=== PATIENT | male | born 1975 | race Caucasian/White ===

== ENCOUNTER → 2016-11-04 | Outpatient (CLI) | payer OTHER ==
[~2016-11-04] MED LIST: CELEXA20 MG PO; CLARITIN10 MG PO; LISINOPRIL40 MG PO; MEDROL DOSEPAK4 MG PO; PREDNISONE10 MG PO; PRILOSEC10 MG/Pack PO; TOBREX OPHTH S2.5 ML OPH; VICO10300 PO; XANAX1 MG PO
== END | disposition home or self-care (01) ==
LOC: RESCLI 01:36
DX: I10 Essential (primary) hypertension (principal); N50.82 Scrotal pain; R05 Cough; J30.2 Other seasonal allergic rhinitis; F10.10 Alcohol abuse, uncomplicated; R00.0 Tachycardia, unspecified; G25.81 Restless legs syndrome; K76.0 Fatty (change of) liver, not elsewhere classified; R30.0 Dysuria; R51 Headache; Z71.41 Alcohol abuse counseling and surveillance of alcoholic; Z72.0 Tobacco use; Z71.6 Tobacco abuse counseling

== ENCOUNTER → 2016-11-05 | Outpatient (CLI) | payer OTHER | END | disposition home or self-care (01) | LOC: LAB 02:13 | DX: Z00.01 Encounter for general adult medical examination with abnormal findings (principal); R30.0 Dysuria ==

== ENCOUNTER → 2016-11-09 | Outpatient (CLI) | payer OTHER | END | disposition home or self-care (01) | LOC: US 03:02 | DX: N50.82 Scrotal pain (principal) ==

== ENCOUNTER → 2016-11-16 | Outpatient (CLI) | payer OTHER | END | disposition home or self-care (01) | LOC: RESCLI 03:20 | DX: I10 Essential (primary) hypertension (principal); N50.82 Scrotal pain; F10.10 Alcohol abuse, uncomplicated; G25.81 Restless legs syndrome; R51 Headache; K76.0 Fatty (change of) liver, not elsewhere classified; H93.13 Tinnitus, bilateral; Z91.19 Patient's noncompliance with other medical treatment and regimen; Z71.41 Alcohol abuse counseling and surveillance of alcoholic; Z72.0 Tobacco use; Z71.6 Tobacco abuse counseling ==

== ENCOUNTER → 2016-12-09 | Outpatient (CLI) | payer OTHER ==
[2016-12-09 13:14] LABS: BASO # 0.1 10*3/uL (0.0-0.1); BASO % 0.9 % (0.0-1.0); EOS # 0.1 10*3/uL (0.0-0.4); EOS % 1.7 % (1.0-4.0); HEMATOCRIT 43.8 % (42.0-52.0); HEMOGLOBIN 15.1 g/dl (14.0-18.0); LYMPH # 1.2 10*3/uL (1.3-4.4); LYMPH % 20.9 % (27.0-41.0); MEAN CELL VOLUME 103.1 fl (80.0-94.0); MEAN CORPUSCULAR HGB 35.5 pg (27.0-31.0); MEAN CORPUSCULAR HGB CONC 34.5 g/dl (33.0-37.0); MEAN PLATELET VOLUME 10.3 fl (9.6-12.3); MONO # 0.6 10*3/uL (0.1-1.0); NEUT # 3.8 10*3/uL (2.3-7.9); NEUT % 65.2 % (47.0-73.0); PLATELET COUNT AUTOMATED 114 10*3/uL (130-400); RED BLOOD COUNT 4.25 10*6/uL (4.50-5.90); RED CELL DISTRI WIDTH 12.4 % (0-14.5); WHITE BLOOD COUNT 5.8 10*3/uL (4.8-10.8)
[2016-12-09 13:43] LABS: ALBUMIN 4.2 gm/dl (3.1-4.5); ALKALINE PHOSPHATASE 71 U/L (45-117); BUN 4 mg/dl (7-24); CHLORIDE 99 mmol/L (98-107); CHOLESTEROL 211 mg/dL (<200); CREATININE 0.67 mg/dL (0.70-1.30); HDL CHOLESTEROL 130 mg/dl (40-60); LDL CHOLESTEROL 71 mg/dL (9-159); POTASSIUM 4.2 mmol/L (3.5-5.1); SGOT/AST 99 IU/L (3-35); SGPT/ALT 132 U/L (12-78); SODIUM 136 mmol/L (136-145); TOTAL PROTEIN 8.3 gm/dL (6.4-8.2); TRIGLYCERIDES 50 mg/dl (<150); VLDL CHOLESTEROL 10 mg/dL (6-40)
== END | disposition home or self-care (01) ==
LOC: LAB 12:32
PROVIDERS: Internal Medicine
DX: Z00.01 Encounter for general adult medical examination with abnormal findings (principal); R79.89 Other specified abnormal findings of blood chemistry

== ENCOUNTER → 2016-12-14 | Outpatient (CLI) | payer OTHER | END | disposition home or self-care (01) | LOC: RESCLI 03:14 | DX: R74.0 Nonspecific elevation of levels of transaminase and lactic acid dehydrogenase [LDH] (principal); R74.8 Abnormal levels of other serum enzymes; I10 Essential (primary) hypertension; D75.89 Other specified diseases of blood and blood-forming organs; Z91.19 Patient's noncompliance with other medical treatment and regimen; K76.0 Fatty (change of) liver, not elsewhere classified; F10.10 Alcohol abuse, uncomplicated; Z72.0 Tobacco use; Z71.6 Tobacco abuse counseling; R51 Headache ==

== ENCOUNTER → 2016-12-30 | Outpatient (CLI) | payer OTHER | END | disposition home or self-care (01) | LOC: US 12-24 10:30 | DX: K76.0 Fatty (change of) liver, not elsewhere classified (principal); R74.0 Nonspecific elevation of levels of transaminase and lactic acid dehydrogenase [LDH] ==

== ENCOUNTER → 2017-01-04 | Outpatient (CLI) | payer OTHER ==
[~2017-01-04] MED LIST changes: +HYDR25T PO; +Motrin,Rufen800 MG PO; +ZITHROMAX250 MG PO
== END | disposition home or self-care (01) ==
LOC: RESCLI 02:59
DX: I10 Essential (primary) hypertension (principal); D75.89 Other specified diseases of blood and blood-forming organs; K76.0 Fatty (change of) liver, not elsewhere classified; F10.10 Alcohol abuse, uncomplicated; G25.81 Restless legs syndrome; Z91.19 Patient's noncompliance with other medical treatment and regimen; Z72.0 Tobacco use; Z71.6 Tobacco abuse counseling

== ENCOUNTER → 2017-01-12 | Outpatient (CLI) | payer OTHER ==
[~2017-01-12] MED LIST changes: -HYDR25T PO; -Motrin,Rufen800 MG PO; -ZITHROMAX250 MG PO
[2017-01-12 15:24] LABS: BILIRUBIN NEGATIVE (NEGATIVE); BLOOD NEGATIVE (NEGATIVE); CLARITY CLEAR (CLEAR); COLOR YELLOW (YELLOW); GLUCOSE NEGATIVE (NEGATIVE); KETONE NEGATIVE (NEGATIVE); LEUKO ESTERASE NEGATIVE (NEGATIVE); NITRITE NEGATIVE (NEGATIVE); PH 5.5 (5.0-9.0); SPECIFIC GRAVITY <= 1.005 (1.005-1.030); UROBILINOGEN 0.2 E.U./dl (0.2-1.0)
[2017-01-12 15:33] LABS: EPITHELIAL CELLS 0-2; WBC 0-2 wbc/hpf (0-5)
== END ==
LOC: LAB 09:24 → RESCLI 09:24
PROVIDERS: Emergency Medicine
DX: N50.82 Scrotal pain (principal)

== ENCOUNTER 2017-01-20 13:56 | Emergency (ER) | payer OTHER ==
[~2017-01-20] VITALS: Ht 182.8 cm; Wt 72.6 kg
[2017-01-20] MEDS ORDERED: HYDR25T PO (14:14)
[2017-01-20 14:40] LABS: BASO % 0.3 % (0.0-1.0); EOS # 0.1 10*3/uL (0.0-0.4); EOS % 0.8 % (1.0-4.0); HEMATOCRIT 44.1 % (42.0-52.0); HEMOGLOBIN 15.5 g/dl (14.0-18.0); LYMPH # 0.9 10*3/uL (1.3-4.4); LYMPH % 13.2 % (27.0-41.0); MEAN CELL VOLUME 100.9 fl (80.0-94.0); MEAN CORPUSCULAR HGB 35.5 pg (27.0-31.0); MEAN CORPUSCULAR HGB CONC 35.1 g/dl (33.0-37.0); MONO # 0.7 10*3/uL (0.1-1.0); MONO % 9.8 % (3.0-9.0); NEUT % 75.6 % (47.0-73.0); PLATELET COUNT AUTOMATED 88 10*3/uL (130-400); RED BLOOD COUNT 4.37 10*6/uL (4.50-5.90); RED CELL DISTRI WIDTH 12.3 % (0-14.5); WHITE BLOOD COUNT 6.7 10*3/uL (4.8-10.8)
[2017-01-20 14:48] LABS: INTERNATIONAL NORM RATIO 0.9 (2.0-3.5)
[2017-01-20 14:57] LABS: ALBUMIN 4.4 gm/dl (3.1-4.5); ALKALINE PHOSPHATASE 83 U/L (45-117); BUN 11 mg/dl (7-24); CHLORIDE 94 mmol/L (98-107); CREATININE 0.83 mg/dL (0.70-1.30); SGOT/AST 71 IU/L (3-35); SGPT/ALT 70 U/L (12-78); SODIUM 132 mmol/L (136-145); TOTAL PROTEIN 8.9 gm/dL (6.4-8.2)
[2017-01-20 14:58] LABS: ETHYL ALCOHOL < 3.0 mg/dl (<3); TROPONIN I < 0.015 ng/ml (<0.045)
[2017-01-20] MEDS ORDERED: ZITHROMAX250 MG PO (16:36)
[2017-01-20] MEDS ORDERED: MEDROL DOSEPAK4 MG PO (16:36)
[2017-01-20] MEDS ORDERED: Motrin,Rufen800 MG PO (16:36)
== END 2017-01-20 16:45 | disposition home or self-care (01) ==
LOC: ED 13:56
PROVIDERS: Physician Assistant
DX: S22.32XA Fracture of one rib, left side, initial encounter for closed fracture (principal); J06.9 Acute upper respiratory infection, unspecified; F10.10 Alcohol abuse, uncomplicated; Z79.899 Other long term (current) drug therapy; W19.XXXA Unspecified fall, initial encounter; Y93.89 Activity, other specified; Y92.89 Other specified places as the place of occurrence of the external cause; Y99.8 Other external cause status

== ENCOUNTER 2018-01-08 16:30 | Emergency (ER) | payer OTHER ==
[~2018-01-08] VITALS: Ht 182.8 cm; Wt 63.5 kg
[~2018-01-08 16:30] MED LIST changes: +HYDR25T PO; +Motrin,Rufen800 MG PO; +ZITHROMAX250 MG PO
== END 2018-01-08 17:35 | disposition home or self-care (01) ==
LOC: ED 16:30
DX: S01.01XA Laceration without foreign body of scalp, initial encounter (principal); F10.129 Alcohol abuse with intoxication, unspecified; I10 Essential (primary) hypertension; F17.200 Nicotine dependence, unspecified, uncomplicated; Z79.1 Long term (current) use of non-steroidal anti-inflammatories (NSAID); Z79.899 Other long term (current) drug therapy; W01.198A Fall on same level from slipping, tripping and stumbling with subsequent striking against other object, initial encounter; Y93.89 Activity, other specified; Y92.098 Other place in other non-institutional residence as the place of occurrence of the external cause; Y99.8 Other external cause status

== ENCOUNTER 2018-03-30 21:52 | Emergency (ER) | payer OTHER ==
[2018-03-30] MEDS ORDERED: LISINOPRIL-HCT1 EACH PO (22:05)
== END 2018-03-30 22:16 | disposition home or self-care (01) ==
LOC: ED 21:52
DX: S61.216A Laceration without foreign body of right little finger without damage to nail, initial encounter (principal); I10 Essential (primary) hypertension; Z79.899 Other long term (current) drug therapy; W25.XXXA Contact with sharp glass, initial encounter; Y93.89 Activity, other specified; Y92.89 Other specified places as the place of occurrence of the external cause; Y99.8 Other external cause status

== ENCOUNTER 2021-01-02 06:20 | Emergency (ER) | payer OTHER ==
[~2021-01-02] VITALS: Wt 72.6 kg
[~2021-01-02 06:20] MED LIST changes: +LISINOPRIL-HCT1 EACH PO
[2021-01-02 06:33] LABS: HEMATOCRIT 37.8 % (42.0-52.0); MEAN CELL VOLUME 97.9 fl (80.0-94.0); MEAN CORPUSCULAR HGB 34.7 pg (27.0-31.0); MEAN CORPUSCULAR HGB CONC 35.4 g/dl (33.0-37.0); MEAN PLATELET VOLUME 8.1 fl (9.6-12.3); PLATELET COUNT AUTOMATED 217 10*3/uL (130-400); RED BLOOD COUNT 3.86 10*6/uL (4.50-5.90); RED CELL DISTRI WIDTH 12.9 % (0-14.5); WHITE BLOOD COUNT 15.8 10*3/uL (4.8-10.8)
[2021-01-02 06:45] LABS: BUN 9 mg/dl (7-24); CHLORIDE 96 mmol/L (98-107); CREATININE 0.55 mg/dL (0.70-1.30); POTASSIUM 3.3 mmol/L (3.5-5.1); SODIUM 131 mmol/L (136-145)
[2021-01-02 07:00] LABS: TOTAL CELLS COUNTED 100 #CELLS
[2021-01-02 07:01] LABS: BURR CELLS FEW; PLATELET SUFFICIENCY NORMAL (NORMAL)
== END 2021-01-02 16:04 | disposition home or self-care (01) ==
LOC: ED 06:20
PROVIDERS: Internal Medicine
DX: E16.2 Hypoglycemia, unspecified (principal); Z79.899 Other long term (current) drug therapy